=== PATIENT | male | born 1960 | race Caucasian/White ===

== ENCOUNTER → 2016-09-20 | Outpatient (CLI) | payer OTHER ==
[~2016-09-20] MED LIST: AMLO10TA4 PO; ASPI81TA28 PO; DULA1INJ INJ; EFF/375 PO; IMDSR30 PO; LABE300T PO; METF-384 PO; SIMV80TA2 PO
[2016-09-20 08:14] LABS: BASO % 0.6 %; BASO ABS # 0.05 K/uL (0-0.2); COMPLETE YES; EOS % 3.4 %; HEMATOCRIT 44.2 % (42-52); IG% 0.3 %; LYMPH % 16.2 %; LYMPH ABS # 1.43 K/uL (1.2-3.4); MEAN CELL VOLUME 89.5 fL (80-100); MEAN CORPUSCULAR HEMOGLOBIN 28.5 pg (25-34); MEAN CORPUSCULAR HGB CONC 31.9 g/dl (32-36); MEAN PLATELET VOLUME 9.6 fL (7.4-10.4); MONO % 9.9 %; NEUT % 69.6 %; PLATELET COUNT 282 K/uL (130-400); RED BLOOD COUNT 4.94 M/uL (4.7-6.1); WHITE BLOOD COUNT 8.81 K/uL (4.8-10.8)
[2016-09-20 08:28] LABS: ESTIMATED AVERAGE GLUCOSE 177 mg/dl; HA1C FLAG Normal (Normal)
[2016-09-20 08:52] LABS: ALT/SGPT 54 U/L (12-78); AST/SGOT 45 U/L (15-37); BLOOD UREA NITROGEN 15 mg/dl (7-18); BUN/CREATININE RATIO 11.4 (10-20); CARBON DIOXIDE 29 mmol/L (21-32); CHLORIDE 103 mmol/L (98-107); CHOLESTEROL 104 mg/dl (0-200); GLUCOSE 160 mg/dl (70-99); POTASSIUM 3.7 mmol/L (3.5-5.1); SODIUM 139 mmol/L (136-145); TRIGLYCERIDES 102 mg/dl (0-150); VERY LOW DENSITY LIPOPROT CALC 20 mg/dl
[2016-09-20 09:02] LABS: ALB/GLOB RATIO 0.8 (0.9-2); ALKALINE PHOSPHATASE 124 U/L (45-117); CHOLESTEROL/HDL RATIO 2.7; HDL CHOLESTEROL 38 mg/dl; LDL CHOLESTEROL CALCULATED 46 mg/dl; THYROID STIMULATING HORMONE 0.746 uIu/ml (0.300-4.500)
[2016-09-20 09:05] LABS: CALCIUM 8.9 mg/dl (8.5-10.1)
[2016-09-20 09:10] LABS: RATIO 2344.3 mcg/mg (0-30.0)
== END | disposition home or self-care (01) ==
LOC: C.LAB 06:47
PROVIDERS: ATTEND Internal Medicine
DX: I10 Essential (primary) hypertension (principal); E11.65 Type 2 diabetes mellitus with hyperglycemia

== ENCOUNTER → 2016-11-05 | Outpatient (CLI) | payer BC ==
--- NOTE | 2016-11-05 14:41 | DIAGNOSTIC IMAGING REPORT ---
THYROID ULTRASOUND HISTORY: Goiter E04.0 Simple [id number] COMPARISON: 05/29/2011 FINDINGS: Right lobe: Maximum dimension 10.5 cm. Several heterogeneous nodules in general similar in overall morphology compared to the prior study. Left lobe: Maximum dimension 9.7 cm. Nodularity again similar morphology compared to the prior study. Isthmus: No nodules. IMPRESSION: Enlarged heterogeneous goiter . Underlying nodularity as well as overall internal heterogeneity is similar as compared to the prior exam. Electronically signed by: Byron Skelton M.D. 11/05/2016 2:40 PM Dictated Date/Time: 11/05/2016 2:37 PM
== END ==
LOC: C.ULTR 14:05
PROVIDERS: ATTEND Internal Medicine Endocrinology, Diabetes & Metabolism
DX: E04.0 Nontoxic diffuse goiter (principal)

== ENCOUNTER 2016-11-13 19:49 | Observation (INO) | payer BC ==
[~2016-11-13] VITALS: Ht 170.2 cm; Wt 152.3 kg
[~2016-11-13 19:49] MED LIST changes: -DULA1INJ INJ; -IMDSR30 PO
[2016-11-13 20:52] LABS: HEMATOCRIT 44.7 % (42-52); MEAN CELL VOLUME 87.6 fL (80-100); MEAN CORPUSCULAR HEMOGLOBIN 26.9 pg (25-34); MEAN CORPUSCULAR HGB CONC 30.6 g/dl (32-36); MEAN PLATELET VOLUME 9.3 fL (7.4-10.4); PLATELET COUNT 297 K/uL (130-400); WHITE BLOOD COUNT 11.34 K/uL (4.8-10.8)
[2016-11-13 21:11] LABS: BUN/CREATININE RATIO 13.1 (10-20); CREATININE 1.5 mg/dl (0.60-1.40); INR 0.9 (0.9-1.1); PARTIAL THROMBOPLASTIN RATIO 1.9; POTASSIUM 3.9 mmol/L (3.5-5.1)
[2016-11-13 21:18] LABS: ALB/GLOB RATIO 0.8 (0.9-2)
--- NOTE | 2016-11-13 21:25 | DIAGNOSTIC IMAGING REPORT ---
CHEST ONE VIEW PORTABLE CLINICAL HISTORY: Chest pain. COMPARISON STUDY: Chest radiograph February 25, 2013. FINDINGS: Chronic right chest wall deformity is noted. There is no pneumothorax or pleural effusion. This exam is compromised by suboptimal penetration related to portable technique. There is no evidence of pulmonary edema. There is moderate cardiomegaly. This is unchanged. IMPRESSION: No acute cardiopulmonary findings. No change in appearance of the chest. Electronically signed by: Perry Mason M.D. 11/13/2016 9:24 PM Dictated Date/Time: 11/13/2016 9:23 PM
[2016-11-13] MEDS ORDERED: KETOROLAC TROMETHAMINE 30 MG/ML VIAL IV STA (21:57)
[2016-11-13] MEDS ORDERED: SODIUM CHLORIDE 0.9% 1000ML 1,000 ML IV ONE (22:00)
[2016-11-13] MEDS ORDERED: DULA1INJ INJ (22:41)
[2016-11-13 22:50] LABS: CALCIUM 8.9 mg/dl (8.5-10.1)
--- NOTE | 2016-11-13 22:56 | EMERGENCY ROOM VISIT NOTE ---
History First contact with patient: 21:34 Chief Complaint: CHEST PAIN Stated Complaint: CHEST PAIN, L ARM PAIN, SOB Nursing Triage Summary: patient c/o left arm tingling at 1130am today and again tonight around 1900. denies any chest pain . patient states he has also been getting increased SOB. patient states he has a heart history. History of Present Illness The patient is a 56 year old male who presents to the Emergency Room with complaints of 2 episodes of left arm pain over the past one day. The patient had his first episode around 11:30 AM, roughly 10 hours prior to arrival. The patient had a second episode around 7 PM, 4 and half hours prior to arrival. The patient has had increasing shortness of breath for the past 2 days. He has a history of MS, diabetes, hypertension, and dyslipidemia. He follows with Dr. Adair of cardiology, and states that he last had a stress test he believes in 2008. The patient has not taken anything [id number] for his symptoms today. He has not had fever or chills. He has no recent travel history. His pain is intermittent, dull, and at worst rated a 7/10. The best is rated a 2/ 10. Review of Systems More than 10 systems were reviewed and otherwise negative with the exception of history of present illness. Past Medical/Surgical History Medical Problems: (1) Benign hypertension (2) Cardiac stent placement (3) Chronic renal insufficiency (4) Coronary artery disease (5) Left arm pain (6) non-ST segment elevation myocardial infarction (7) slurred speech r/o TIA Family History Family history of cardiac disease Social History Smoking Status: Former Smoker Marital Status: Housing Status: lives with family Occupation Status: employed Current/Historical Medications Scheduled Amlodipine Besylate (Norvasc), 10 MG PO DAILY Aspirin (Aspirin Ec), 81 MG PO DAILY Dulaglutide (Trulicity), 0.75 MG INJ WK Labetalol Hcl (Labetalol Hcl), 600 MG PO BID Metformin Hcl (Glucophage), 1,000 MG PO Q2D Simvastatin (Zocor), 80 MG PO QPM Venlafaxine Hcl (Effexor), 37.5 MG PO BID Allergies Coded Allergies: Diphenhydramine (Unverified Allergy, Intermediate, hives, 11/13/16) Clopidogrel (Verified Allergy, Mild, RASH, 11/13/16) Physical Exam Vital Signs Date Time Temp Pulse Resp B/P (MAP) Pulse Ox O2 Delivery O2 Flow Rate FiO2 11/13/16 23:39 68 20 146/89 98 Room Air 11/13/16 22:22 70 18 145/95 96 Room Air 11/13/16 21:28 73 11/13/16 21:12 84 22 167/82 96 Room Air 11/13/16 20:42 98 Room Air 11/13/16 20:16 95 Room Air 11/13/16 19:59 36.9 72 18 157/76 94 Room Air Physical Exam VITALS: Vitals are noted on the nurse's note and reviewed by myself. Vital signs with hypertension GENERAL: Well-developed, well-nourished, obese white male, who is in no acute distress and resting comfortably. Patient is cooperative with the examination. HEAD: Normocephalic atraumatic. NECK: Supple without nuchal rigidity. No lymphadenopathy. No thyromegaly. Cervical spine is nontender. HEART: Regular rate and rhythm without murmurs gallops or rubs. LUNGS: Clear to auscultation bilaterally without wheezes, rales or rhonchi. No retractions or accessory muscle use. ABDOMEN: Positive normal bowel sounds x 4. Soft, nontender, without masses or organomegaly. No guarding or rebound tenderness. MUSCULOSKELETAL: No muscle atrophy, erythema, or edema noted. Full range of motion without joint tenderness in all extremities. Medical Decision & Procedures ER Provider Diagnostic Interpretation: CHEST ONE VIEW PORTABLE CLINICAL HISTORY: Chest pain. COMPARISON STUDY: Chest radiograph February 25, 2013. FINDINGS: Chronic right chest wall deformity is noted. There is no pneumothorax or pleural effusion. This exam is compromised by suboptimal penetration related to portable technique. There is no evidence of pulmonary edema. There is moderate cardiomegaly. This is unchanged. IMPRESSION: No acute cardiopulmonary findings. No change in appearance of the chest. Laboratory Results 11/13/16 20:35 11/13/16 20:35 Test 11/13/16 20:35 Red Blood Count 5.10 M/uL (4.7-6.1) Mean Corpuscular Volume 87.6 fL (80-100) Mean Corpuscular Hemoglobin 26.9 pg (25-34) Mean Corpuscular Hemoglobin Concent 30.6 g/dl (32-36) RDW Standard Deviation 47.9 fL (36.4-46.3) RDW Coefficient of Variation 14.9 % (11.5-14.5) Mean Platelet Volume 9.3 fL (7.4-10.4) Prothrombin Time 10.0 SECONDS (9.0-12.0) Prothromb Time International Ratio 0.9 (0.9-1.1) Activated Partial Thromboplast Time 49.1 SECONDS (21.0-31.0) Partial Thromboplastin Ratio 1.9 Anion Gap 9.0 mmol/L (3-11) Est Creatinine Clear Calc Drug Dose 78.3 ml/min Estimated GFR () 59.5 Estimated GFR (Non- 51.3 BUN/Creatinine Ratio 13.1 (10-20) Calcium Level 8.9 mg/dl (8.5-10.1) Total Bilirubin 0.4 mg/dl (0.2-1) Aspartate Amino Transf (AST/SGOT) 41 U/L (15-37) Alanine Aminotransferase (ALT/SGPT) 45 U/L (12-78) Alkaline Phosphatase 103 U/L (45-117) Total Creatine Kinase 410 U/L (39-308) Creatine Kinase MB 12.3 ng/ml (0.5-3.6) Creatine Kinase MB Ratio 3.0 (0-3.0) Troponin I 0.023 ng/ml (0-0.045) Total Protein 7.0 gm/dl (6.4-8.2) Albumin 3.0 gm/dl (3.4-5.0) Globulin 4.0 gm/dl (2.5-4.0) Albumin/Globulin Ratio 0.8 (0.9-2) Medications Administered Medications (Trade) Dose Ordered Sig/Idalia Route Start Time Stop Time Status Last Admin Dose Admin Ketorolac Tromethamine (Toradol Inj) 30 mg NOW STAT IV 11/13/16 21:57 11/13/16 21:58 DC 11/13/16 22:26 30 MG Sodium Chloride 1,000 ml @ 999 mls/hr Q1H1M ONCE IV 11/13/16 22:00 11/13/16 23:00 DC 11/13/16 22:26 999 MLS/HR ECG Change: Sinus rhythm with Premature atrial complexes @71 bpm Anteroseptal infarct (cited on or before 25-FEB-2013) Abnormal ECG When compared with ECG of 25-FEB-2013 08:33, Premature atrial complexes are now Present ED Course Physical exam and history were performed. Nursing notes and EMR were reviewed. Patient appears to have intermittent left arm pain with subjective shortness of breath. The patient has an extensive cardiac history and is diabetic. IV access was established and labs were obtained. The patient was hydrated and medicated as above. EKG was performed and is without acute ST elevation and is otherwise as above. The patient chest x-ray does not show acute process. The blood work is as above and was reviewed. The patient does have a very slightly elevated white blood cell count of unknown etiology. He does not have a significant anemia, bandemia, or significant electrolyte imbalance. His sugar is slightly elevated, but he is a diabetic. Troponin 1 is negative. The case was discussed with my attending physician, Dr. Parikh, and we feel the patient is not stable for discharge home. He has significant comorbidities and his symptoms certainly could represent unstable anginal pain. The case was discussed with the on-call hospitalist, who agreed to evaluate the patient here in the department. Please see their dictation for further patient course, plan , and disposition. The chart was completed utilizing [employer] Speech Voice Recognition Software. Grammatical errors, random word insertions, pronoun errors, and incomplete sentences are an occasional consequence of this system due to software limitations, ambient noise, and hardware issues. Any formal questions or concerns about the content, text, or information contained within the body of this dictation should be directly addressed to the provider for clarification. . Medical Decision Differential diagnosis includes, but is not limited to: Myocardial infarction, dysrhythmia, pericarditis, pneumothorax, aortic aneurysm/dissection, DVT/PE, anxiety, GERD, PUD, electrolyte imbalance, thyroid disorder, pneumonia, bronchitis, pancreatitis, and others Impression Primary Impression: Shortness of breath Departure Information Referrals RV. Alva MD (PCP) Patient Instructions My [facility]
[2016-11-14 00:50] VITALS: BP 157/94; PULSE 72; TEMP 37.2; O2SAT 93; BMI 52.6
[2016-11-14] MEDS ORDERED: GLUCOSE 40% GEL 15 GM TUBE PO PRN (02:15)
[2016-11-14] MEDS ORDERED: ACETAMINOPHEN 325 MG TAB PO PRN (02:15)
[2016-11-14] MEDS ORDERED: ONDANSETRON INJ 2 MG/ML 2 ML VIAL IV PRN (02:15)
[2016-11-14] MEDS ORDERED: DEXTROSE 50% 50 ML SYR IV PRN (02:15)
[2016-11-14] MEDS ORDERED: GLUCAGON FOR INJ 1 MG VIAL SQ PRN (02:15)
[2016-11-14] MEDS ORDERED: GLUCOSE 10 TABS/TUBE PO PRN (02:15)
[2016-11-14] MEDS ORDERED: NITROGLYCERIN 0.4 MG SL PER TAB CHARGE SL PRN (02:15)
[2016-11-14 03:57] VITALS: BP 151/97; PULSE 70; TEMP 36.7; O2SAT 94
[2016-11-14] MEDS ORDERED: IV FLUIDS COMPLETED PRN (04:30)
--- NOTE | 2016-11-14 04:56 | History and Physical ---
History & Physical Date & Time of Service: Nov 14, 2016 at 04:47. The patient was examined on 11/13/2016. Chief Complaint: Left Arm Pain, Shortness Of Breath Primary Care Physician: RV. Alva MD History of Present Illness Source: patient, family The patient is a 56-year-old male who presents emergency department with an initial episode of left arm pain that occurred around 11:30 AM this morning and a second episode around 7 PM this evening, about 4 hours prior to arrival. He reports the pain is similar to previous episodes of heart attack, but did not last nearly as long and was not as intense. He has had increasing shortness of breath over the past 2 days. He has not had any recent travel or sick exposures. He has followed with Dr. Adair from cardiology, who has not been seen in at least 2 years. His last stress test was 2008. Past Medical/Surgical History Medical Problems: (1) Benign hypertension Status: Chronic (2) Cardiac stent placement Status: Resolved (3) Chronic renal insufficiency Status: Chronic (4) Coronary artery disease Status: Chronic (5) non-ST segment elevation myocardial infarction Status: Chronic Social History Smoking Status: Never Smoker Smokeless Tobacco Use: No Alcohol Use: none Drug Use: none Marital Status: Housing status: lives with family Occupational Status: employed Immunizations History of Influenza Vaccine: N/A Influenza Vaccine Date: Apr 30, 2011 History of Tetanus Vaccine?: unsure History of Pneumococcal: No History of Hepatitis B Vaccine: unsure Multi-Drug Resistant Organisms History of MDRO: No Allergies Coded Allergies: Diphenhydramine (Unverified Allergy, Intermediate, hives, 11/13/16) Clopidogrel (Verified Allergy, Mild, RASH, 11/13/16) Home Medications Scheduled Amlodipine Besylate (Norvasc), 10 MG PO DAILY Aspirin (Aspirin Ec), 81 MG PO DAILY Dulaglutide (Trulicity), 0.75 MG INJ WK Labetalol Hcl (Labetalol Hcl), 600 MG PO BID Metformin Hcl (Glucophage), 1,000 MG PO Q2D Simvastatin (Zocor), 80 MG PO QPM Venlafaxine Hcl (Effexor), 37.5 MG PO BID Review of Systems The patient denies palpitations, cough, lower extremity swelling, sore throat, fevers, chills, sweats, weight change, fatigue, nausea, vomiting, abdominal pain , pelvic pain, blood in urine or stool, dysuria, urinary frequency or urgency, lightheadedness, dizziness, headache, memory loss, rash, abnormal bruising or bleeding, imbalance, focal or generalized weakness, numbness or tingling in arms or legs, arthralgias or myalgias, back or neck pain, night sweats, or allergy symptoms. The review of systems is otherwise negative other than for that already noted above, and at least 10 systems have been reviewed. Physical Exam Vital Signs Date Time Temp Pulse Resp B/P (MAP) Pulse Ox O2 Delivery O2 Flow Rate FiO2 11/14/16 04:00 Room Air 11/14/16 03:57 36.7 70 20 151/97 (115) 94 Room Air 11/14/16 00:50 37.2 72 18 157/94 93 Room Air 11/13/16 23:39 68 20 146/89 98 Room Air 11/13/16 22:22 70 18 145/95 96 Room Air 11/13/16 21:28 73 11/13/16 21:12 84 22 167/82 96 Room Air 11/13/16 20:42 98 Room Air 11/13/16 20:16 95 Room Air 11/13/16 19:59 36.9 72 18 157/76 94 Room Air The patient is awake, well-developed and adequately nourished, alert and oriented 3, normocephalic and atraumatic, lying in bed and in no acute distress. HEENT--PERRL, EOMI, mucous membranes and oropharynx normal. Neck--supple, no JVD or bruits, thyroid normal, trachea midline, no adenopathy. Heart--normal S1 and S2, no extra beats, no murmurs, rubs or gallops. Lungs--clear bilaterally but diminished throughout, no respiratory distress, no accessory muscle use. Abdomen--normal bowel sounds and soft, nontender and nondistended, no hernias or masses, no organomegaly and obese. Extremities--no cyanosis, clubbing or edema. There are good distal pulses b/l. Dermatologic--normal skin turgor, normal color, warm and dry, no abnormal lymph nodes, no rash. Neurologic--cranial nerves II through XII grossly intact, motor and sensory examination normal. Rheumatologic--normal range of motion, nontender, muscles and joints. Psychiatric--normal affect. Diagnostics Laboratory Results Results Past 24 Hours Test 11/13/16 20:35 11/14/16 00:35 11/14/16 02:28 Range/Units White Blood Count 11.34 4.8-10.8 K/uL Red Blood Count 5.10 4.7-6.1 M/uL Hemoglobin 13.7 14.0-18.0 g/dL Hematocrit 44.7 42-52 % Mean Corpuscular Volume 87.6 80-100 fL Mean Corpuscular Hemoglobin 26.9 25-34 pg Mean Corpuscular Hemoglobin Concent 30.6 32-36 g/dl RDW Standard Deviation 47.9 36.4-46.3 fL RDW Coefficient of Variation 14.9 11.5-14.5 % Platelet Count 297 130-400 K/uL Mean Platelet Volume 9.3 7.4-10.4 fL Prothrombin Time 10.0 9.0-12.0 SECONDS Prothromb Time International Ratio 0.9 0.9-1.1 Activated Partial Thromboplast Time 49.1 21.0-31.0 SECONDS Partial Thromboplastin Ratio 1.9 Sodium Level 137 136-145 mmol/L Potassium Level 3.9 3.5-5.1 mmol/L Chloride Level 102 98-107 mmol/L Carbon Dioxide Level 26 21-32 mmol/L Anion Gap 9.0 3-11 mmol/L Blood Urea Nitrogen 20 7-18 mg/dl Creatinine 1.50 0.60-1.40 mg/dl Est Creatinine Clear Calc Drug Dose 78.3 ml/min Estimated GFR () 59.5 Estimated GFR (Non- 51.3 BUN/Creatinine Ratio 13.1 10-20 Random Glucose 176 70-99 mg/dl Calcium Level 8.9 8.5-10.1 mg/dl Total Bilirubin 0.4 0.2-1 mg/dl Aspartate Amino Transf (AST/SGOT) 41 15-37 U/L Alanine Aminotransferase (ALT/SGPT) 45 12-78 U/L Alkaline Phosphatase 103 45-117 U/L Total Creatine Kinase 410 359 39-308 U/L Creatine Kinase MB 12.3 10.8 0.5-3.6 ng/ml Creatine Kinase MB Ratio 3.0 3.0 0-3.0 Troponin I 0.023 0.021 0-0.045 ng/ml Total Protein 7.0 6.4-8.2 gm/dl Albumin 3.0 3.4-5.0 gm/dl Globulin 4.0 2.5-4.0 gm/dl Albumin/Globulin Ratio 0.8 0.9-2 Bedside Glucose 144 70-99 mg/dl Hepatitis C Antibody Screen NEG NEG Diagnostic Radiology Patient Name: JALEN ENNIS Unit Number: [id number] Dictated: 11/13/162122 Transcribed: 11/13/162122 JA Printed Date/Time: [~ rep prt dt]/[~ rep prt tm] [~ rep ct labl] - [~ rep ct ivnm] [facility] Radiology [place] [address] Dictated: 11/13/162122 Transcribed: 11/13/162122 JA Printed Date/Time: [~ rep prt dt]/[~ rep prt tm] [~ rep ct labl] - [~ rep ct ivnm] [~ rep ct add3]] CHEST ONE VIEW PORTABLE CLINICAL HISTORY: Chest pain. COMPARISON STUDY: Chest radiograph February 25, 2013. FINDINGS: Chronic right chest wall deformity is noted. There is no pneumothorax or pleural effusion. This exam is compromised by suboptimal penetration related to portable technique. There is no evidence of pulmonary edema. There is moderate cardiomegaly. This is unchanged. IMPRESSION: No acute cardiopulmonary findings. No change in appearance of the chest. Electronically signed by: Perry Mason M.D. 11/13/2016 9:24 PM Dictated Date/Time: 11/13/2016 9:23 PM The status of this report is Signed. Draft = Not yet reviewed or approved by Radiologist. Signed = Reviewed and approved by Radiologist. <AttendingPhy></AttendingPhy> <FamilyPhy>RV. Alva MD</ FamilyPhy> <PrimaryPhy>RV. Alva MD</PrimaryPhy> <UnitNumber> [id number]</UnitNumber> <VisitNumber>[id number]</VisitNumber> <PatientName> JALEN ENNIS</PatientName> <DateOfBirth>1960</DateOfBirth> <Location> C.[facility]C</Location> <ServiceDate>11/13/16</ServiceDate> <MNE>ESINDI</MNE> < OrderingPhy>ED, PROTOCOL</OrderingPhy> <OrderingPhyMNE>f rep ord dr galloway</ OrderingPhyMNE> <DictatingPhyMNE>f rep dict dr galloway</DictatingPhyMNE> <CCListMNE> f rep ct nilesh</CCListMNE> <AdmittingPhyMNE>f pt admit dr galloway</AdmittingPhyMNE> < AttendingPhyMNE>f pt attend dr galloway</AttendingPhyMNE> <ConsultingPhyMNE>f pt consult dr galloway</ConsultingPhyMNE> <FamilyPhyMNE>f pt fam dr galloway</FamilyPhyMNE> <OtherPhyMNE>f pt other dr galloway</OtherPhyMNE> < PrimaryPhyMNE>f pt prim care dr galloway</PrimaryPhyMNE> <ReferringPhyMNE>f pt referring dr galloway</ReferringPhyMNE> EKG EKG shows normal sinus rhythm at 71 bpm, and old anterior septal NE, PA-C, no acute ST-T changes Impression Assessment and Plan CAD/hypertension/history of NE/coronary artery stent/renal insufficiency--the patient will be admitted to the telemetry unit for serial cardiac enzymes, cardiac rhythm monitoring and a 2-D echocardiogram with Dopplers. We'll consult his senior courtroom clerk Dr. Adair. We'll continue amlodipine 10 mg by mouth daily, enteric-coated aspirin 81 mg by mouth daily, and labetalol 600 mg by mouth twice a day. Diabetes mellitus--hold metformin 1000 mg by mouth every 2 days. Hold Trulicity due to nonformulary status. Place on Accu-Cheks before meals and at bedtime with NovoLog coverage. Hypercholesterolemia--continue simvastatin 80 mg by mouth every afternoon. Depression--continue Effexor 37.5 mg by mouth twice a day. Level of Care Telemetry Advanced Directives Existing Advance Directive: No Existing Living Will: No Existing Power of Pigment [employer] Lacquer Mixer: No Resuscitation Status FULL RESUSCITATION VTE Prophylaxis VTE Risk Assessment Done? Y/N: Yes Risk Level: Moderate Given or contraindicated: SCD's Social Service Consult None Apply
[2016-11-14] MEDS ORDERED: PERFLUTREN LIPID MICROSPHERE (DEFINITY) IV ONE ×2 (07:11→12:21)
[2016-11-14 07:49] VITALS: BP 176/90; PULSE 85; TEMP 36.8; O2SAT 94
[2016-11-14] MEDS ORDERED: PNEUMOCOCCAL ADMINISTRATION CHARGE ONE (08:00)
[2016-11-14] MEDS ORDERED: TRULICITY~ORDER AWAITING ACTION SCH (08:00)
[2016-11-14] MEDS ORDERED: PNEUMOCOCCAL POLYSACCHARIDES 25 MCG/0.5 ML VIAL/SYR IM. ONE (08:00)
[2016-11-14] MEDS: INSULIN ASPART 100 UNITS/ML 3 ML PEN SC SCH ×2 (08:24→13:23)
[2016-11-14] MEDS ORDERED: LABETALOL HCL 300 MG TAB PO SCH (09:00)
[2016-11-14] MEDS ORDERED: ASPIRIN 81 MG ECTAB PO SCH (09:00)
[2016-11-14] MEDS ORDERED: VENLAFAXINE HCL 37.5 MG TAB PO SCH (09:00)
[2016-11-14] MEDS ORDERED: AMLODIPINE BESYLATE 5 MG TAB PO SCH (09:00)
[2016-11-14] MEDS ORDERED: ATROPINE SULFATE 0.1 MG/ML 5ML SYR ONE ×2 (11:20→11:59)
[2016-11-14] MEDS ORDERED: METOPROLOL TARTRATE 1 MG/ML VIAL ONE ×2 (11:20→12:04)
[2016-11-14] MEDS ORDERED: DOBUTamine HCL 12.5 MG/ML 20 ML VIAL ONE (11:20)
--- NOTE | 2016-11-14 11:25 | Cardiology Consultation ---
Cardiology Consultation Date of Consultation: Nov 14, 2016. Requesting Physician: Dr. Jimenez Attending Physician: Dr. Morton Reason for Consultation: Left arm pain, hx of CAD Pt evaluation today including: conversation w/ patient, physical exam, chart review, lab review, review of studies, review of inpatient medication list, conversation w/ attending History of Present Illness Mr. Mccarthy is a 56-year-old male obese male with a history of coronary artery disease S/P non-ST segment elevation SC in 2008 with BMS to distal RCA, normal LV systolic function, hypertension, dyslipidemia, type 2 diabetes mellitus, sleep apnea (on BiPAP), and chronic kidney disease. The patient presented to the Emergency Department last evening due to complaints of shortness of breath and left arm pain. He reports that he was walking his dog around the yard around 11:30 am yesterday when he noted posterior left arm pain. The discomfort lasted about 30 seconds in duration before self-resolving. He had no associated symptoms of chest pain, nausea, diaphoresis, or shortness of breath with the discomfort. 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 He noted the left arm pain again, but it only lasted a couple of seconds in duration. His shortness of breath recovered fairly quickly. He subsequently went to the ED for further evaluation. He has been asymptomatic throughout his time in the hospital. He denies any recurrent left arm pain. He denies shortness of breath, orthopnea, PND, or edema. He denies lightheadedness, dizziness, syncope, abnormal bleeding, or cerebrovascular symptoms. He reports that he had left arm pain with his SC in 2008, but it was more severe and lasted longer in duration. At baseline, he has shortness of breath with walking about 1/2 mile on ground level. Review of Systems: As noted in HPI. All other 10 point review of systems otherwise negative. 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 He is . He has no children. He quit smoking in 2008 (previously smoked 1 pack of cigars daily for 15 years). He denies alcohol or drug use. Allergies Coded Allergies: Diphenhydramine (Unverified Allergy, Intermediate, hives, 11/13/16) Clopidogrel (Verified Allergy, Mild, RASH, 11/13/16) Medications Current Inpatient Medications Medications (Trade) Dose Ordered Sig/[place] Route Start Time Stop Time Status Last Admin Dose Admin Acetaminophen (Tylenol Tab) 650 mg Q4H PRN PO 11/14/16 02:15 12/14/16 02:14 Nitroglycerin (Nitrostat Tab) 0.4 mg UD PRN SL 11/14/16 02:15 12/14/16 02:14 Insulin Aspart (novoLOG ASPART) SLIDING SCALE If C... ACHS SC 11/14/16 07:00 12/14/16 06:59 11/14/16 08:24 5 UNITS Glucose (Glucose 40% Gel) UD PRN PO 11/14/16 02:15 12/14/16 02:14 Glucose (Glucose Chew Tab) 1 tabs UD PRN PO 11/14/16 02:15 12/14/16 02:14 Dextrose (Dextrose 50% 50ML Syringe) 50 ml UD PRN IV 11/14/16 02:15 12/14/16 02:14 Glucagon (Glucagon Inj) 1 mg UD PRN SQ 11/14/16 02:15 12/14/16 02:14 Amlodipine Besylate (Norvasc Tab) 10 mg DAILY PO 11/14/16 09:00 12/14/16 08:59 11/14/16 08:34 10 MG Aspirin (Ecotrin Tab) 81 mg DAILY PO 11/14/16 09:00 12/14/16 08:59 11/14/16 08:33 81 MG Labetalol HCl (Normodyne Tab) 600 mg BID PO 11/14/16 09:00 12/14/16 08:59 11/14/16 08:34 600 MG Simvastatin (Zocor Tab) 80 mg QPM PO 11/14/16 21:00 12/14/16 20:59 Venlafaxine HCl (effeXOR TAB) 37.5 mg BID PO 11/14/16 09:00 12/14/16 08:59 11/14/16 08:33 37.5 MG Miscellaneous Information (Order Awaiting Action) 1 ea QS N/A 11/14/16 08:00 12/14/16 07:59 Ondansetron HCl (Zofran Inj) 4 mg Q6H PRN IV 11/14/16 02:15 12/14/16 02:14 Miscellaneous (Iv Fluids Completed) 1 ea PRN PRN N/A 11/14/16 04:30 11/14/17 04:29 Physical Exam Vital Signs Past 12 Hours Date Time Temp Pulse Resp B/P (MAP) Pulse Ox O2 Delivery O2 Flow Rate FiO2 11/14/16 07:49 36.8 85 19 176/90 (118) 94 Room Air 11/14/16 07:45 Room Air 11/14/16 04:00 Room Air 11/14/16 03:57 36.7 70 20 151/97 (115) 94 Room Air 11/14/16 00:50 37.2 72 18 157/94 93 Room Air 11/13/16 23:39 68 20 146/89 98 Room Air 11/13/16 22:22 70 18 145/95 96 Room Air 11/13/16 21:28 73 Constitutional: Alert, oriented, in no acute distress HEENT: Head is atraumatic and normocephalic. EOMs intact. Sclera anicteric. Face is symmetric. No perioral cyanosis. Mucous membranes moist. Neck: Supple, difficult to assess JVP given thick neck Pulmonary: Normal respiratory effort, clear to auscultation bilaterally Cardiac: Regular rate and rhythm, normal S1 and S2, no gallops, no rubs, no obvious murmurs Extremities: No clubbing, cyanosis, or edema. Pulses intact Abdomen: Obese. Normal bowel sounds, soft, non-tender, no abdominal mass palpated Skin: Chronic venous stasis skin changes of bilateral lower extremities. No rash Neurological: Oriented to person, place, and time Data Laboratory Results: Last 24 Hours Test 11/13/16 20:35 11/14/16 00:35 11/14/16 02:28 11/14/16 06:38 White Blood Count 11.34 K/uL Red Blood Count 5.10 M/uL Hemoglobin 13.7 g/dL Hematocrit 44.7 % Mean Corpuscular Volume 87.6 fL Mean Corpuscular Hemoglobin 26.9 pg Mean Corpuscular Hemoglobin Concent 30.6 g/dl RDW Standard Deviation 47.9 fL RDW Coefficient of Variation 14.9 % Platelet Count 297 K/uL Mean Platelet Volume 9.3 fL Prothrombin Time 10.0 SECONDS Prothromb Time International Ratio 0.9 Activated Partial Thromboplast Time 49.1 SECONDS Partial Thromboplastin Ratio 1.9 Sodium Level 137 mmol/L Potassium Level 3.9 mmol/L Chloride Level 102 mmol/L Carbon Dioxide Level 26 mmol/L Anion Gap 9.0 mmol/L Blood Urea Nitrogen 20 mg/dl Creatinine 1.50 mg/dl Est Creatinine Clear Calc Drug Dose 78.3 ml/min Estimated GFR () 59.5 Estimated GFR (Non- 51.3 BUN/Creatinine Ratio 13.1 Random Glucose 176 mg/dl Calcium Level 8.9 mg/dl Total Bilirubin 0.4 mg/dl Aspartate Amino Transf (AST/SGOT) 41 U/L Alanine Aminotransferase (ALT/SGPT) 45 U/L Alkaline Phosphatase 103 U/L Total Creatine Kinase 410 U/L 359 U/L Creatine Kinase MB 12.3 ng/ml 10.8 ng/ml Creatine Kinase MB Ratio 3.0 3.0 Troponin I 0.023 ng/ml 0.021 ng/ml Total Protein 7.0 gm/dl Albumin 3.0 gm/dl Globulin 4.0 gm/dl Albumin/Globulin Ratio 0.8 Bedside Glucose 144 mg/dl 154 mg/dl Hepatitis C Antibody Screen NEG Cardiac catheterization 02/12/2009: Severe distal RCA disease, proximal right posterolateral artery stenosis, and mild to moderate ostial PDA stenosis. Deployment of a 3.5 x 20 mm bare metal stent in the distal RCA which extended into the posterior lateral artery. Post dilated with a 4.5 x 8 mm noncompliant balloon. PTCA to ostial PDA stenosis at that time. Otherwise, his coronary anatomy showed normal left main coronary artery. 30% mid LAD stenosis and minor luminal irregularities of the distal LAD. First diagonal vessel had 10-20% stenosis in the proximal segment. Mid left circumflex had a 30% stenosis and the distal left circumflex had a 30% stenosis. The distal circumflex gave rise to a medium caliber posterolateral artery which had a 30% proximal stenosis. The right coronary artery is a very large vessel which had luminal irregularities proximally, and at its mid segment had a 20% stenosis. Early distal RCA had a 50% tubular stenosis. Echo 02/25/2013: Normal biventricular systolic function. Normal chamber dimensions. Mild concentric LVH. No significant valvular abnormalities. CXR: No acute cardiopulmonary findings EKG: Sinus rhythm with premature atrial complexes. [address]-T wave abnormality Telemetry reviewed: Sinus rhythm with average rate in the 70s Assessment & Plan ASSESSMENT/PLAN: 1. Left arm pain: His symptoms are not typical. ECG shows no acute ischemic change. Two sets of Troponin have been negative. He has chronically elevated creatinine kinase, which has been stable. Although his presentation is atypical , he does have known CAD and he did have left arm pain when he presented with an SC in 2008. Further evaluation of myocardial ischemia is therefore recommended with a dobutamine stress echocardiogram. 2. Shortness of breath: His symptoms were brief when walking last night. He does not appear significantly hypervolemic on exam today and CXR showed no acute process. Will perform a dobutamine stress echo as noted above. 3. Coronary artery disease s/p BMS RCA 2008: DSE ordered. Continue aspirin, statin, and beta marisa therapy. 4. Hypertension: His blood pressure has been elevated throughout the hospitalization. Would resume usual outpatient medications if there are no contraindications. It appears as though he is also on hydralazine and benazepril according to his outpatient chart. 5. Dyslipidemia: Continue statin therapy. Thank you for allowing us to see this patient in consultation. The patient was discussed with Dr. Morton, and the plan was made in collaboration with him. Further recommendations to follow after the DSE. ADDENDUM by cardiology attending: Patient seen and examined. Agree with above with additional: Left arm pain and dyspnea exertion as described above. Symptoms occurred 30 seconds or less. No chest discomfort. Feels much better now back to baseline. He has not yet walked in the hallways. Exam notable for: Neck: Thick. General: No acute distress. Cardiac: Regular. No audible murmurs, rubs, or gallops. Lungs: Clear. ECG reviewed without dynamic ST changes. No significant elevation of troponin levels. Chronically elevated CK levels. Dobutamine stress echo recommended and performed. No definite ischemic changes noted. Distal septal wall appeared to be infiltrated with echo contrast, and appeared to contract/augment appropriately. Cannot rule out small abnormality in this 1 distal segment. Assessment plan: 1. Dyspnea with exertion and left arm pain: Symptoms were very short-lived and exertional. Has history of CAD. Dobutamine stress echo without significant abnormalities. Recommend isosorbide mononitrate 30 mg once daily to see if it helps with symptoms. If no help, or worsening symptoms, he was advised to seek out medical attention. He should follow up with Dr. Adair. 2. CAD s/p PCI in past: No definite angina. Can start nitrate therapy to see if it helps with symptoms, as they were similar to prior angina, but not exactly the same. Continue anti-platelet therapy indefinitely. Can continue statin is no contraindications (see below). Continue beta-marisa. 3. Hypertension: Resume home medications. 4. Elevated CK: Has chronically elevated CK levels. Details of this are not well known to me at this time. Consider a trial off of statin therapy, if not tried before, to see if CK levels improved. This will be communicated with his PCP. 5. Disposition: No further ischemic evaluation recommended at this time. Plan of care has been discussed with Dr. Warner. Johny Morton
[2016-11-14 11:50] VITALS: BP 166/80; PULSE 67; TEMP 36.7; O2SAT 92
[2016-11-14] MEDS ORDERED: IMDSR30 PO (12:51)
--- NOTE | 2016-11-14 12:52 | Discharge Instructions ---
Discharge Instructions Date of Service Nov 14, 2016. Admission Reason for Admission: Left Arm Pain, Shortness Of Breath Discharge Discharge Diagnosis / Problem: chest pain Discharge Goals Goal(s): Diagnostic testing, Therapeutic intervention Activity Recommendations Activity Limitations: resume your previous activity . Current Hospital Diet Patient's current hospital diet: AHA Diet (Heart Healthy), Diabetes Type 2 Diet Discharge Diet Recommended Diet: Diabetes Type 2 Diet Pending Studies Studies pending at discharge: no Laboratory Results Hemoglobin A1c Test 09/20/16 06:51 Range/Units Estimated Average Glucose 177 mg/dl Hemoglobin A1c 7.8 H 4.5-5.6 % Lipid Panel Test 09/20/16 06:51 Range/Units Triglycerides Level 102 0-150 mg/dl Cholesterol Level 104 0-200 mg/dl HDL Cholesterol 38 mg/dl Cholesterol/HDL Ratio 2.7 LDL Cholesterol, Calculated 46 mg/dl Medical Emergencies . Who to Call and When: Medical Emergencies: If at any time you feel your situation is an emergency, please call 911 immediately. . Non-Emergent Contact Non-Emergency issues call your: Primary Care Provider Call Non-Emergent contact if: temperature is above 101, your pain is unusual for you . . "Provider Documentation" section prepared by Munir Warner. . VTE Core Measure Inpt VTE Proph given/why not?: SCD's
[2016-11-14] MEDS ORDERED: ISOSORBIDE MONONITRATE 30 MG TABCR PO ONE (13:00)
--- NOTE | 2016-11-14 13:16 | DOBUTAMINE ECHO ---
*NOTICE TO RECEIVING LIBERTARIAN AGENCY This information is strictly Confidential and protected under [place] law. [place] law prohibits you from making any further disclosure of this information unless further disclosure is expressly permitted by the written consent of the person to whom it pertains or is authorized by law. A general authorization for the release of medical or other information is not sufficient for this purpose. Hospital accepts no responsibility if the information is made available to any other person, INCLUDING THE PATIENT. Interpretation Summary * Name: JALEN ENNIS Study Date: 11/14/2016 06:33 AM BP: 151/97 mmHg * Patient Location: C.2E\S\E203\S\1 HR: 70 * : 1960 (M/d/yyyy) Gender: Male Height: 67 in * Age: 56 yrs Ethnicity: [place] Weight: 335 lb * Ordering Physician: Jasmeet Jimenez * Referring Physician: Self, Referred * Performed By: Linda Javed RDCS * * Reason For Study: Chest pain * BSA: 2.5 m2 * -- Conclusions -- * Stress Echo: * 1. Probable negative dobutamine stress echo for ischemia at 86% MPHR. Distal septal segments appears to be infiltrated with echo contrast, which may affect interpretation. * 2. Negative dobutamine ECG for ischemia at 86% MPHR. * 3. No chest pain or arm pain reported. * 4. Hypertensive response to dobutamine. * 5. No arrhythmia. PVCs noted. * 6. Technically difficult study, enhanced with IV Definity. * ECHO: * 1. Normal left ventricular size and systolic function. EF 65-70%. No regional wall motion abnormalities. Moderate to severe concentric left ventricular hypertrophy. Type 2 diastolic dysfunction. * 2. Mild biatrial dilation. * 3. No significant valvular abnormalities visualized. Procedure Details * DOBUTAMINE ECHO, CPT#[id number] * ECHO COLOR FLOW, CPT #[id number] * ECHO DOPPLER, CPT #[id number] Left Ventricular Findings with Stress * Name: JALEN ENNIS Study Date: 11/14/2016 06:33 AM BP: 151/97 mmHg Patient Location: C.2E\S\E203\S\1 HR: 70 : 1960 (M/d/yyyy) Gender: Male Height: 67 in Age: 56 yrs Ethnicity: [place] Weight: 335 lb Ordering Physician: Jasmeet Jimenez Referring Physician: Self, Referred Performed By: Linda Javed RD Reason For Study: Chest pain BSA: 2.5 m2 Left Ventricle * The left ventricle is normal in size. * Moderate to severe concentric left ventricular hypertrophy. * Left ventricular systolic function is normal. * Ejection Fraction = 65-70%. * The left ventricular wall motion is normal at rest. * The left ventricular ejection fraction increases normally with stress. The left ventricular end-systolic cavity size reduces post-stress (normal response). The left ventricular wall motion with stress is normal. * Septal mild cardio appears to be infiltrated with echo contrast in the peak stress images. There appears to be normal augmentation of all visualized wall segments. Right Ventricle * The right ventricle is not well visualized. * The right ventricular systolic function is normal as assessed by tricuspid annular plane systolic excursion (TAPSE) (normal >1.5 cm). * The right ventricular systolic function is normal. Atria * The left atrium is mildly dilated. * The right atrium is mildly dilated. * There is no evidence of atrial septal defect, but resolution does not allow assessment for a patent foramen ovale. Mitral Valve * There is mild mitral annular calcification. * The mitral valve is grossly normal. * There is no mitral valve stenosis. * Significant mitral regurgitation is absent. Tricuspid Valve * The tricuspid valve is not well visualized. * There is no tricuspid stenosis. * Significant tricuspid regurgitation is absent. Aortic Valve * The aortic valve is not well visualized. * No hemodynamically significant valvular aortic stenosis. * There is no significant aortic regurgitation. Pulmonic Valve * The pulmonary valve is inadequately visualized, but the Doppler data is adequate for interpretation. * There is no significant pulmonary regurgitation. Great Vessels * The aortic root is normal size. * Mildly blunted pulmonary venous flow pattern. Normal IVC size and inspiratory collapse. Pericardium * There is no pericardial effusion. Stress Parameters * NSR at 68 bpm. Nonspecific T-wave abnormality. * No arrhythmia were noted with stress. * Stress ECG: No ST changes. No arrhythmias. * The stress portion of this study was personally supervised by the undersigned interpreting physician. * Rest heart rate was '68' BPM. * Rest blood pressure was '144/80' * Maximum heart rate achieved was 142 bpm. * Maximum heart rate was 86 % of maximum age-predicted heart rate. * Maximum blood pressure was '237/69' * Maximum Dobutamine infusion rate was '50' mcg/kg/min. * A total of 1.75 mg of intravenous Atropine was used to supplement Dobutamine for heart rate response. * Dobutamine infusion was terminated due to end of protocol/maximum medication doses * A total of 15.0 mg of IV Metoprolol was administered to reverse Dobutamine-induced tachycardia. Left Ventricular Findings with Stress * A complete two-dimensional transthoracic echocardiogram was performed (2D, M-mode, Doppler and color flow Doppler). * A contrast injection of Definity was performed to improve assessment of LV function. * Contrast was injected into an intravenous site in the left arm. * One vial of Definity ultrasound contrast was diluted in normal saline to a total volume of 10 ml. A total of '2' ml of solution was administered during imaging. * Lot # [id number] of Definity utilized for procedure. * Expiration date JAN 16. * The attending nurse who injected the contrast agent was Faye Markham RN. MMode 2D Measurements and Calculations IVSd 1.6 cm LVIDd 4.4 cm LVIDs 2.7 cm LVPWd 1.5 cm IVS/LVPW 1.0 FS 38.2 % EDV(Teich) 88.6 ml ESV(Teich) 27.8 ml EF(Teich) 68.6 % EDV(cubed) 86.3 ml ESV(cubed) 20.4 ml EF(cubed) 76.4 % LV mass(C)d 284.0 grams LV mass(C)dI 112.8 grams/m\S\2 SV(Teich) 60.7 ml SI(Teich) 24.1 ml/m\S\2 SV(cubed) 65.9 ml SI(cubed) 26.2 ml/m\S\2 Ao root diam 3.4 cm Ao root area 8.9 cm\S\2 ACS 2.1 cm asc Aorta Diam 3.7 cm LVAd ap4 36.5 cm\S\2 LVLd ap4 8.6 cm EDV(MOD-sp4) 127.1 ml EDV(sp4-el) 131.9 ml LVAs ap4 16.7 cm\S\2 LVLs ap4 6.3 cm ESV(MOD-sp4) 35.9 ml ESV(sp4-el) 37.5 ml EF(MOD-sp4) 71.7 % EF(sp4-el) 71.6 % LVAd ap2 33.1 cm\S\2 LVLd ap2 8.4 cm EDV(MOD-sp2) 104.8 ml EDV(sp2-el) 111.2 ml LVAs ap2 16.0 cm\S\2 LVLs ap2 6.9 cm ESV(MOD-sp2) 31.4 ml ESV(sp2-el) 31.7 ml EF(MOD-sp2) 70.0 % EF(sp2-el) 71.5 % LVLd %diff -2.81 % EDV(MOD-bp) 114.0 ml LVLs %diff 8.5 % ESV(MOD-bp) 34.7 ml EF(MOD-bp) 69.5 % SV(MOD-sp4) 91.2 ml SI(MOD-sp4) 36.2 ml/m\S\2 SV(MOD-sp2) 73.4 ml SI(MOD-sp2) 29.1 ml/m\S\2 SV(MOD-bp) 79.3 ml SI(MOD-bp) 31.5 ml/m\S\2 SV(sp4-el) 94.4 ml SI(sp4-el) 37.5 ml/m\S\2 SV(sp2-el) 79.5 ml SI(sp2-el) 31.6 ml/m\S\2 Doppler Measurements and Calculations MV E max bessy 99.9 cm/sec MV A max bessy 89.2 cm/sec MV E/A 1.1 MV dec time 0.23 sec Ao V2 max 196.1 cm/sec Ao max PG 15.4 mmHg Ao max PG (full) 7.1 mmHg Ao V2 mean 122.7 cm/sec Ao mean PG 7.1 mmHg Ao V2 VTI 38.0 cm LV V1 max PG 8.2 mmHg LV V1 max 143.6 cm/sec SV(Ao) 338.5 ml SI(Ao) 134.5 ml/m\S\2 TV E max bessy 60.1 cm/sec PA acc slope 677.6 cm/sec\S\2 PA acc time 0.13 sec RAP systole 3.0 mmHg PA pr(Accel) 20.4 mmHg
[2016-11-14 13:27] VITALS: BP 166/80; PULSE 67; TEMP 36.7; O2SAT 92
--- NOTE | 2016-11-14 14:27 | Discharge Summary ---
Discharge Summary Date of Service Nov 14, 2016. Discharge Summary Admission Date: Nov 13, 2016 at 23:51 Discharge Date: Nov 14, 2016 Discharge Disposition: Home Principal Diagnosis: chest pain Immunizations: Have You Had Influenza Vaccine: N/A Influenza Vaccine Date: Apr 30, 2011 History of Tetanus Vaccine?: unsure History of Pneumococcal: No History of Hepatitis B Vaccine: unsure Discharge Exam Review of Systems: Constitutional: No fever, No chills Respiratory: No cough, No sputum Cardiovascular: No chest pain, No orthopnea Abdomen: No pain, No nausea Musculoskeletal: No joint pain, No muscle pain Physical Exam: General Appearance: WD/WN, no apparent distress Neck: supple, no JVD Respiratory/Chest: chest non-tender, lungs clear, normal breath sounds Cardiovascular: regular rate, rhythm, no murmur Abdomen / GI: normal bowel sounds, non tender, soft Neurologic/Psychiatric: alert, oriented x 3 Hospital Course 56 M with left arm pain and recent change in WILLARD, history of CAD/hypertension/ history of CA/coronary artery stent/ CAD? serial enzymes show minor CK change but no troponin elevation, amlodipine 10 mg by mouth daily, enteric-coated aspirin 81 mg by mouth daily, and labetalol 600 mg by mouth twice a day. Stress was not abnormal with exception for poorly visualized apex, per cardiology consult will consider starting Isosorbide mononitrate and having close follow up with Dr Adair, pt understands and agrees with the plan Diabetes mellitus--resume metformin and Trulicity CKD 2 stable and likely diabetic related Hypercholesterolemia-- simvastatin 80 mg Depression-- Effexor 37.5 mg by mouth twice a day. Total Time Spent: Greater than 30 minutes This includes examination of the patient, discharge planning, medication reconciliation, and communication with other providers. Discharge Instructions Please refer to the electronic Patient Visit Report (Discharge Instructions) for additional information. Additional Copies To Surinder Adair M.D.
[2016-11-14 14:48] VITALS: Ht 170.2 cm; Wt 152.3 kg
[2016-11-14] MEDS ORDERED: SIMVASTATIN 80 MG TAB PO SCH (21:00)
== END 2016-11-14 14:30 | disposition home or self-care (01) ==
LOC: C.EDB 19:51 → C.2E 23:51 → ENRESERV 11-14 00:01
PROVIDERS: ADMIT Hospitalist; ATTEND Internal Medicine
DX: R07.9 Chest pain, unspecified (principal); R06.00 Dyspnea, unspecified; M79.602 Pain in left arm; E11.22 Type 2 diabetes mellitus with diabetic chronic kidney disease; I12.9 Hypertensive chronic kidney disease with stage 1 through stage 4 chronic kidney disease, or unspecified chronic kidney disease; N18.2 Chronic kidney disease, stage 2 (mild); I25.10 Atherosclerotic heart disease of native coronary artery without angina pectoris; I25.2 Old myocardial infarction; I69.328 Other speech and language deficits following cerebral infarction; E78.5 Hyperlipidemia, unspecified; F32.9 Major depressive disorder, single episode, unspecified; Z87.891 Personal history of nicotine dependence; Z79.82 Long term (current) use of aspirin; Z79.899 Other long term (current) drug therapy; Z79.4 Long term (current) use of insulin; Z95.5 Presence of coronary angioplasty implant and graft

== ENCOUNTER → 2017-01-13 | Outpatient (CLI) | payer BC ==
[~2017-01-13] MED LIST changes: +DULA1INJ INJ; +IMDSR30 PO
--- NOTE | 2017-01-13 12:09 | DIAGNOSTIC IMAGING REPORT ---
RENAL ULTRASOUND HISTORY: N28.1 Cyst of right kidney COMPARISON: Abdominal MRI 01/11/2016. FINDINGS: Right kidney: 14.0 cm. No hydronephrosis. Slight increased cortical echogenicity. Normal cortical thickness. A 7.7 x 6.9 x 6.0 cm simple cyst within the upper pole. Left kidney: 12.6 cm. No hydronephrosis. Slight increased cortical echogenicity. Normal cortical thickness. Bladder: No bladder wall thickening. Is not well-distended. IMPRESSION: A 7.7 x 6.9 x 6.0 cm simple cyst within the upper pole the right kidney which remains unchanged. Slight increased cortical echogenicity bilaterally. This favors medical renal disease. Electronically signed by: Edin Blanco M.D. 01/13/2017 12:08 PM Dictated Date/Time: 01/13/2017 12:06 PM
== END | disposition home or self-care (01) ==
LOC: C.ULTR 11:28
PROVIDERS: ATTEND Urology
DX: N28.1 Cyst of kidney, acquired (principal)

== ENCOUNTER → 2017-03-26 | Outpatient (CLI) | payer BC ==
[~2017-03-26] VITALS: Ht 170.2 cm; Wt 144.5 kg
[2017-03-26 16:24] VITALS: BP 148/87; PULSE 66; Ht 170.2 cm; Wt 144.5 kg
== END | disposition home or self-care (01) ==
LOC: C.NEUR 14:44
PROVIDERS: ATTEND Physician Assistant
DX: G47.30 Sleep apnea, unspecified (principal)

== ENCOUNTER → 2017-05-09 | Outpatient (CLI) | payer BC ==
[2017-05-09 07:41] LABS: ALT/SGPT 69 U/L (12-78); BLOOD UREA NITROGEN 21 mg/dl (7-18); BUN/CREATININE RATIO 13.5 (10-20); CALCIUM 8.6 mg/dl (8.5-10.1); CARBON DIOXIDE 28 mmol/L (21-32); CHLORIDE 104 mmol/L (98-107); CHOLESTEROL 97 mg/dl (0-200); CREATININE 1.54 mg/dl (0.60-1.40); GLUCOSE 109 mg/dl (70-99); SODIUM 138 mmol/L (136-145); TRIGLYCERIDES 103 mg/dl (0-150); VERY LOW DENSITY LIPOPROT CALC 21 mg/dl
[2017-05-09 07:44] LABS: ALB/GLOB RATIO 0.7 (0.9-2); ALKALINE PHOSPHATASE 139 U/L (45-117); AST/SGOT 56 U/L (15-37); CHOLESTEROL/HDL RATIO 2.3; HDL CHOLESTEROL 42 mg/dl; LDL CHOLESTEROL CALCULATED 34 mg/dl
== END | disposition home or self-care (01) ==
LOC: C.LAB 06:45
PROVIDERS: ATTEND Internal Medicine
DX: E11.65 Type 2 diabetes mellitus with hyperglycemia (principal); Z11.59 Encounter for screening for other viral diseases

== ENCOUNTER → 2017-06-03 | Outpatient (CLI) | payer BC ==
[~2017-06-03] MED LIST changes: +ATOR10TA82 PO; +CHOL1TAB42 PO; -LABE300T PO; +LABE300T3 PO; +PRCSR90 PO; +VALS320T PO
[2017-06-03 16:06] LABS: BLOOD UREA NITROGEN 20 mg/dl (7-18); CALCIUM 8.7 mg/dl (8.5-10.1); CARBON DIOXIDE 27 mmol/L (21-32); GLUCOSE 85 mg/dl (70-99); POTASSIUM 3.5 mmol/L (3.5-5.1); SODIUM 136 mmol/L (136-145)
[2017-06-03 16:56] LABS: HEMOGLOBIN A1C 5.9 % (4.5-5.6)
== END | disposition home or self-care (01) ==
LOC: C.LAB1850 14:05
PROVIDERS: ATTEND Internal Medicine Endocrinology, Diabetes & Metabolism
DX: E11.9 Type 2 diabetes mellitus without complications (principal); R79.89 Other specified abnormal findings of blood chemistry

== ENCOUNTER → 2017-06-15 | Outpatient (CLI) | payer BC ==
[~2017-06-15] MED LIST changes: -ATOR10TA82 PO; -CHOL1TAB42 PO; +LABE300T PO; -LABE300T3 PO; -PRCSR90 PO; -VALS320T PO
[2017-06-15 15:15] LABS: ALBUMIN 3.2 gm/dl (3.4-5.0); BLOOD UREA NITROGEN 24 mg/dl (7-18); CALCIUM 8.9 mg/dl (8.5-10.1); CARBON DIOXIDE 26 mmol/L (21-32); CREATININE 1.48 mg/dl (0.60-1.40); GLUCOSE 110 mg/dl (70-99); PHOSPHORUS 2.9 mg/dl (2.5-4.9); POTASSIUM 3.6 mmol/L (3.5-5.1); SODIUM 136 mmol/L (136-145)
== END | disposition home or self-care (01) ==
LOC: C.LAB1850 13:57
PROVIDERS: ATTEND Internal Medicine Nephrology
DX: R80.9 Proteinuria, unspecified (principal); E55.9 Vitamin D deficiency, unspecified

== ENCOUNTER → 2017-08-03 | Outpatient (CLI) | payer BC ==
[2017-08-03 12:42] LABS: ALBUMIN 2.9 gm/dl (3.4-5.0); BLOOD UREA NITROGEN 20 mg/dl (7-18); CALCIUM 8.8 mg/dl (8.5-10.1); CARBON DIOXIDE 27 mmol/L (21-32); CREATININE 1.52 mg/dl (0.60-1.40); GLUCOSE 111 mg/dl (70-99); POTASSIUM 3.5 mmol/L (3.5-5.1); SODIUM 136 mmol/L (136-145)
[2017-08-03 12:43] LABS: PHOSPHORUS 3.1 mg/dl (2.5-4.9)
== END | disposition home or self-care (01) ==
LOC: C.LAB1850 11:11
PROVIDERS: ATTEND Internal Medicine Nephrology
DX: R80.9 Proteinuria, unspecified (principal)

== ENCOUNTER → 2017-08-20 | Outpatient (CLI) | payer BC | END | disposition home or self-care (01) | LOC: C.LAB1850 10:48 | PROVIDERS: ATTEND Internal Medicine Nephrology | DX: R80.9 Proteinuria, unspecified (principal) ==

== ENCOUNTER → 2017-09-14 | Outpatient (CLI) | payer BC ==
[2017-09-14 12:40] LABS: ALBUMIN 3.2 gm/dl (3.4-5.0); BLOOD UREA NITROGEN 21 mg/dl (7-18); CALCIUM 8.8 mg/dl (8.5-10.1); CARBON DIOXIDE 26 mmol/L (21-32); CREATININE 1.64 mg/dl (0.60-1.40); GLUCOSE 131 mg/dl (70-99); PHOSPHORUS 3.1 mg/dl (2.5-4.9); POTASSIUM 3.6 mmol/L (3.5-5.1); SODIUM 137 mmol/L (136-145)
== END | disposition home or self-care (01) ==
LOC: C.LAB1850 11:16
PROVIDERS: ATTEND Internal Medicine Nephrology
DX: R80.9 Proteinuria, unspecified (principal)